=== PATIENT | female | born 1975 | race Caucasian/White ===

== ENCOUNTER 2020-06-01 02:36 | Emergency (ER) | payer OTHER ==
[~2020-06-01] VITALS: Ht 154.9 cm; Wt 55.0 kg
[2020-06-01] MEDS ORDERED: LOSA25TA25 PO (02:56)
[2020-06-01] MEDS ORDERED: SODIUM CHLORIDE FLUSH 10ML SYR IVF ONE (03:00)
[2020-06-01] MEDS ORDERED: PINK LADY ENEMA 490 ML BOTTLE PR ONE (03:00)
[2020-06-01] MEDS ORDERED: SODIUM CHLORIDE 0.9% 1,000ML IVBOLUS ONE (03:00)
[2020-06-01] MEDS ORDERED: ONDANSETRON 2MG/ML, 2ML IVPush ONE (03:00)
[2020-06-01] MEDS ORDERED: ONDANSETRON 2MG/ML, 2ML ONE (03:20)
[2020-06-01] MEDS ORDERED: FENTANYL PF 100 MCG/2ML ONE ×2 (03:20→06:00)
[2020-06-01] MEDS: FENTANYL PF 100 MCG/2ML IVPush PRN ×2 (03:24→06:03)
[2020-06-01 03:28] LABS: MEAN CORPUSCULAR HEMOGLOBIN 29.5 pg (27.0-34.8); MEAN CORPUSCULAR HGB CONC 33.6 g/dL (32.4-35.8); MEAN CORPUSCULAR VOLUME 87.8 fL (80-100); MEAN PLATELET VOLUME 8.6 fL (7.4-10.4); PLATELET COUNT 285 x10^3/uL (130-400); RED BLOOD COUNT 3.36 x10^6/uL (3.82-5.3); RED CELL DISTRIBUTION WIDTH 14.9 % (9.6-15.2)
[2020-06-01 03:35] LABS: ALBUMIN 3.7 g/dL (3.4-5.0); ANION GAP 8 mmol/L (5-15); CALCIUM 8.3 mg/dL (8.5-10.1); CHLORIDE 104 mmol/L (98-107); CREATININE 0.85 mg/dL (0.55-1.02)
--- NOTE | 2020-06-01 03:38 | NUR ---
SUMMARY NOTE: THIS PT WAS BIB [facility] FROM HOME. SHE HAD A DNC YESTERDAY FOR VAGINAL BLEEDING AT AN OUTPATIENT DOCTOR'S OFFICE. SHE PRESENTS TODAY FOR A CHEIF COMPLAINT OF CONSTIPATION AND LOWER QUADRANT ABD PAIN THAT SHE DESCRIBED PRESSURE. PT'S BLADDER ON ARRIVAL WAS VERY DISTENDED. PATEL CATH WAS PLACED BY THIS RN WITH ANGELA BARTON TO WITNESS. APPROX 1300MLS DRAINED AT THIS TIME. PT MEDICATED TO MAR AND STATES RELIEF FROM PAIN AND ANXIETY. THIS RN TO DO ENEMA AFTER IMAGING. AWAITING IMAGING AT THIS TIME.
[2020-06-01 03:41] LABS: MICROSCOPIC NOT IND
[2020-06-01 03:44] LABS: BASOPHILS # (AUTO) 0.04 x10^3/uL (0-0.1); BASOPHILS % (AUTO) 0 % (0-1); EOSINOPHILS # (AUTO) 0.01 x10^3/uL (0-0.4); EOSINOPHILS % (AUTO) 0 % (1-7); LYMPHOCYTES # (AUTO) 1.24 x10^3/uL (1-3.4); LYMPHOCYTES % (AUTO) 7 % (22-44); MD SCAN; MONOCYTES # (AUTO) 0.67 x10^3/uL (0.2-0.8); MONOCYTES % (AUTO) 4 % (2-9); NEUTROPHILS # (AUTO) 16.89 x10^3/uL (1.8-6.8); NEUTROPHILS % (AUTO) 90 % (42-75)
--- NOTE | 2020-06-01 04:03 | NUR ---
PT TO IMAGING.
[2020-06-01] MEDS ORDERED: PROPOFOL 10 MG/ML, 20ML ONE (04:20)
[2020-06-01] MEDS ORDERED: PROPOFOL 10 MG/ML, 20ML IVPush ONE (04:30)
--- NOTE | 2020-06-01 06:04 | NUR ---
PT UP TO BEDSIDE COMMODE AFTER ENEMA. PT SHAKING FROM NERVES. THIS RN REMAINS AT BEDSIDE WITH PT.
[2020-06-01 06:37] VITALS: BP 107/63
--- NOTE | 2020-06-01 07:00 | NUR ---
PT HAD SUCCESSFUL BM. PT ABLE TO DRESS SELF FOR D/C, AWAITING FOR ENGINEERING PSYCHOLOGIST. EXTENSIVE D/C EDUCATION GIVEN, ALL QUESTIONS ANSWERED. REPORT GIVEN TO ANGELA MCGUIRE.
== END 2020-06-01 07:15 | disposition home or self-care (01) ==
LOC: ED 07:13
DX: K56.41 Fecal impaction (principal); R33.9 Retention of urine, unspecified; R10.9 Unspecified abdominal pain; R11.2 Nausea with vomiting, unspecified
CPT/HCPCS: 36415; 51702; 74022; 74176; 80048; 81003; 82040; 85025; 96361; 96374; 96375; 96376; 99285; J2405; J3010; J7030

== ENCOUNTER 2020-06-28 22:54 | Emergency (ER) | payer OTHER ==
[~2020-06-28] VITALS: Ht 157.5 cm; Wt 52.3 kg
[~2020-06-28 22:54] MED LIST: LOSA25TA25 PO
--- NOTE | 2020-06-28 23:00 | NUR ---
PT BIB [facility] FROM HOME FOR C/O LOWER ABD PAIN/CRAMPING AND CONSTIPATION X3 DAYS. PT HAD HYSTERECTOMY ON 06/19/20. PT HAS HX OF CONSTIPATION/IMPACTION REQUIRING MODERATE SEDATION AND DISIMPACTION FOLLOWING DERRICK WORKER WELL SERVICE PROCEDURE IN PAST. PER EMS, PT TOOK ZOFRAN AT HOME. PT WAS HYPERTENSIVE PER EMS 174/120, IN SIGNIFICANT PAIN. MEDICATED WITH 50MCG FENTANYL AND 2MG VERSED EN ROUTE. PT ARRIVES TO ED A&OX4, ANXIOUS, CRYING AT TIMES. ERP AT BS IMMEDIATELY. POC RV'WD WITH PT.
[2020-06-28] MEDS ORDERED: PINK LADY ENEMA 490 ML BOTTLE PR ONE (23:30)
--- NOTE | 2020-06-29 00:12 | NUR ---
ASSISTED PT UP TO BSC. PT HAD SMALL/MED SIZED SOFT BM. PT VERY ANXIOUS, CRYING, "I JUST CAN'T DO THIS, IT HURTS TOO MUCH, I FEEL LIKE I'M GOING TO PASS OUT". ENCOURAGED PT TO TRY TO RELAX AND FINISH HAVING BM ON BSC BUT PT WANTED TO GO BACK TO BED. ASSISTED PT WITH HYGIENE. REPORTED TO MICKEY MILLER.
[2020-06-29] MEDS ORDERED: METHYLNALTREXONE 12 MG/0.6 ML SYR SQ ONE ×2 (00:15→00:30)
[2020-06-29] MEDS ORDERED: KETAMINE 10 MG/ML, 20ML ONE (00:16)
[2020-06-29] MEDS ORDERED: KETAMINE 10 MG/ML, 20ML IV ONE (00:30)
--- NOTE | 2020-06-29 00:52 | NUR ---
PT MEDICATED TO MAR, KETAMINE FOR PAIN. PT UP TO BEDSIDE COMMODE AT THIS TIME.
--- NOTE | 2020-06-29 01:18 | NUR ---
ERP TO BEDSIDE. PT PASSED LARGE AMOUNT OF STOOL. HARD FORMED APPROX 8CM IN ADDITION TO LOOSE STOOL. PT STATES RELIEF AFTER BM.
[2020-06-29 01:48] VITALS: BP 139/71
== END 2020-06-29 02:04 | disposition home or self-care (01) ==
LOC: ED 06-29 01:32
DX: R10.84 Generalized abdominal pain (principal); K59.00 Constipation, unspecified; Z90.710 Acquired absence of both cervix and uterus
CPT/HCPCS: 74018; 96372; 96374; 99284

== ENCOUNTER 2020-07-04 21:24 | Emergency (ER) | payer OTHER ==
[~2020-07-04] VITALS: Ht 157.5 cm; Wt 84.1 kg
[2020-07-04 21:33] VITALS: BP 189/112
[2020-07-04] MEDS ORDERED: SODIUM CHLORIDE FLUSH 10ML SYR IVF ONE (22:00)
[2020-07-04 22:26] LABS: BASOPHILS # (AUTO) 0.03 x10^3/uL (0-0.1); BASOPHILS % (AUTO) 0 % (0-1); EOSINOPHILS # (AUTO) 0.68 x10^3/uL (0-0.4); EOSINOPHILS % (AUTO) 7 % (1-7); LYMPHOCYTES # (AUTO) 1.75 x10^3/uL (1-3.4); LYMPHOCYTES % (AUTO) 17 % (22-44); MD NO; MEAN CORPUSCULAR HEMOGLOBIN 27.3 pg (27.0-34.8); MEAN CORPUSCULAR HGB CONC 32.3 g/dL (32.4-35.8); MEAN CORPUSCULAR VOLUME 84.3 fL (80-100); MEAN PLATELET VOLUME 8.3 fL (7.4-10.4); MONOCYTES # (AUTO) 0.56 x10^3/uL (0.2-0.8); MONOCYTES % (AUTO) 6 % (2-9); NEUTROPHILS # (AUTO) 7.16 x10^3/uL (1.8-6.8); NEUTROPHILS % (AUTO) 70 % (42-75); PLATELET COUNT 339 x10^3/uL (130-400); RED BLOOD COUNT 3.85 x10^6/uL (3.82-5.3); RED CELL DISTRIBUTION WIDTH 15.5 % (9.6-15.2)
[2020-07-04 22:29] LABS: ALBUMIN 3.2 g/dL (3.4-5.0); ANION GAP 5 mmol/L (5-15); CHLORIDE 112 mmol/L (98-107)
--- NOTE | 2020-07-04 23:30 | NUR ---
SEAN JAMES MD WITH PELVIC. SEVERAL LARGE CLOTS PASSED DURING EXAM.
--- NOTE | 2020-07-05 00:27 | NUR ---
ASSISTED MD JACOB WITH PELVIC AND PACKING. PT CONTACTING TO PICK HER UP, PT COMFORTABLE WITH DC AT THIS TIME.
== END 2020-07-05 00:56 | disposition home or self-care (01) ==
LOC: ED 22:34
DX: N99.840 Postprocedural hematoma of a genitourinary system organ or structure following a genitourinary system procedure (principal); N93.9 Abnormal uterine and vaginal bleeding, unspecified; Z90.710 Acquired absence of both cervix and uterus
CPT/HCPCS: 36415; 80048; 82040; 85025; 99284

== ENCOUNTER 2020-07-18 20:48 | Emergency (ER) | payer OTHER ==
[~2020-07-18] VITALS: Ht 157.5 cm; Wt 51.8 kg
--- NOTE | 2020-07-18 21:08 | NUR ---
PT HAD HYSTERECTOMY ON Jun AND ON THE SHE HAD HEMMORAGING FOR WHICH SHE HAD STICHES PLACED AND THE BLEEDING STOPED UNTIL NOON TODAY. PT TALKED WITH OB DOC AND THE DOC STATED TO COME IN IF BLEEDING DOES NOT STOP. PATIENT STATES HAVING CRAMPS AND BLEEDING HAS BEEN CONSTANT ALL DAY. PATIENT HAD A LOT OF BLOOD AT NOON, BUT HAS SLOWED DOWN, PER PATIENT. PATIENT RESTING IN BED, DENIES LIGHTHEADED/DIZZINESS. PATIENT A/0 X 4, SKIN PINK AND DRY. PLACED ON MONITORS, SAFETY MEASURES IN PLACE
[2020-07-18 22:13] LABS: BASOPHILS # (AUTO) 0.06 x10^3/uL (0-0.1); BASOPHILS % (AUTO) 1 % (0-1); EOSINOPHILS # (AUTO) 0.59 x10^3/uL (0-0.4); EOSINOPHILS % (AUTO) 8 % (1-7); LYMPHOCYTES # (AUTO) 1.87 x10^3/uL (1-3.4); LYMPHOCYTES % (AUTO) 26 % (22-44); MD NO; MEAN CORPUSCULAR HEMOGLOBIN 25.9 pg (27.0-34.8); MEAN CORPUSCULAR HGB CONC 31.3 g/dL (32.4-35.8); MEAN CORPUSCULAR VOLUME 82.8 fL (80-100); MEAN PLATELET VOLUME 7.9 fL (7.4-10.4); MONOCYTES # (AUTO) 0.48 x10^3/uL (0.2-0.8); MONOCYTES % (AUTO) 7 % (2-9); NEUTROPHILS # (AUTO) 4.22 x10^3/uL (1.8-6.8); NEUTROPHILS % (AUTO) 58 % (42-75); PLATELET COUNT 452 x10^3/uL (130-400); RED BLOOD COUNT 3.65 x10^6/uL (3.82-5.3); RED CELL DISTRIBUTION WIDTH 15.2 % (9.6-15.2)
--- NOTE | 2020-07-18 22:23 | NUR ---
patient was ambulatory to restroom when erp went in for metal reed tuner exam, erp aware. awaiting exam and lab results. patient has no needs at this time
[2020-07-18 22:24] LABS: ANION GAP 7 mmol/L (5-15); CALCIUM 8.4 mg/dL (8.5-10.1); CHLORIDE 107 mmol/L (98-107); CREATININE 0.78 mg/dL (0.55-1.02)
--- NOTE | 2020-07-19 00:22 | NUR ---
LAB TO BS FOR REPEATE LABS AT THIS TIME. PT. DENIES NEEDS.
[2020-07-19 00:37] LABS: BASOPHILS # (AUTO) 0.03 x10^3/uL (0-0.1); BASOPHILS % (AUTO) 0 % (0-1); EOSINOPHILS # (AUTO) 0.67 x10^3/uL (0-0.4); EOSINOPHILS % (AUTO) 8 % (1-7); LYMPHOCYTES # (AUTO) 2.04 x10^3/uL (1-3.4); LYMPHOCYTES % (AUTO) 25 % (22-44); MD NO; MEAN CORPUSCULAR HGB CONC 31.3 g/dL (32.4-35.8); MEAN CORPUSCULAR VOLUME 83.1 fL (80-100); MEAN PLATELET VOLUME 7.5 fL (7.4-10.4); MONOCYTES # (AUTO) 0.49 x10^3/uL (0.2-0.8); MONOCYTES % (AUTO) 6 % (2-9); NEUTROPHILS # (AUTO) 4.83 x10^3/uL (1.8-6.8); NEUTROPHILS % (AUTO) 60 % (42-75); PLATELET COUNT 444 x10^3/uL (130-400); RED BLOOD COUNT 3.59 x10^6/uL (3.82-5.3)
--- NOTE | 2020-07-19 02:25 | NUR ---
PA at bedside for re-evaluation. ERP to see patient.
[2020-07-19] MEDS ORDERED: DIAZEPAM 5 MG TABLET PO ONE (03:00)
[2020-07-19] MEDS ORDERED: DIAZEPAM 5 MG TABLET ONE (03:04)
--- NOTE | 2020-07-19 03:34 | NUR ---
PT. MEDICATED PER MAR AFTER RETURNING FROM BATHROOM. PT. PASSED A LARGE APPROXIMATELY GOLFBALL SIZED CLOT; ROHIT BERMEO CALLED TO ASSESS. PT. TEARFUL; EMOTIONAL SUPPORTED OFFERED WITH GOOD EFFECT. AT FOR SUPPORT. ROHIT VALENZUELA IN ROOM NOW TO PLACE PACKING.
[2020-07-19 04:25] VITALS: BP 143/91
== END 2020-07-19 04:26 ==
LOC: ED 21:41
DX: N99.820 Postprocedural hemorrhage of a genitourinary system organ or structure following a genitourinary system procedure (principal); R10.31 Right lower quadrant pain; R10.32 Left lower quadrant pain; N93.9 Abnormal uterine and vaginal bleeding, unspecified; Z90.710 Acquired absence of both cervix and uterus
CPT/HCPCS: 36415; 80048; 85025; 99285

== ENCOUNTER 2020-08-03 11:06 | Emergency (ER) | payer OTHER ==
[~2020-08-03] VITALS: Ht 160 cm; Wt 52.5 kg
--- NOTE | 2020-08-03 12:13 | NUR ---
ELECTRICAL TECHNICIAN: PT TO ROOM FROM LOBBY
[2020-08-03 12:17] LABS: BASOPHILS # (AUTO) 0.07 x10^3/uL (0-0.1); BASOPHILS % (AUTO) 1 % (0-1); EOSINOPHILS # (AUTO) 0.42 x10^3/uL (0-0.4); EOSINOPHILS % (AUTO) 6 % (1-7); LYMPHOCYTES # (AUTO) 1.31 x10^3/uL (1-3.4); LYMPHOCYTES % (AUTO) 17 % (22-44); MD NO; MEAN CORPUSCULAR HEMOGLOBIN 25.3 pg (27.0-34.8); MEAN CORPUSCULAR HGB CONC 31.1 g/dL (32.4-35.8); MEAN CORPUSCULAR VOLUME 81.3 fL (80-100); MEAN PLATELET VOLUME 7.7 fL (7.4-10.4); MONOCYTES # (AUTO) 0.44 x10^3/uL (0.2-0.8); MONOCYTES % (AUTO) 6 % (2-9); NEUTROPHILS # (AUTO) 5.34 x10^3/uL (1.8-6.8); NEUTROPHILS % (AUTO) 71 % (42-75); PLATELET COUNT 343 x10^3/uL (130-400); RED BLOOD COUNT 4.03 x10^6/uL (3.82-5.3); RED CELL DISTRIBUTION WIDTH 16.1 % (9.6-15.2)
[2020-08-03 12:29] LABS: ALBUMIN 4.1 g/dL (3.4-5.0); ANION GAP 9 mmol/L (5-15); CHLORIDE 108 mmol/L (98-107)
[2020-08-03 12:35] LABS: ALANINE AMINOTRANSFERASE 15 U/L (12-78); ALKALINE PHOSPHATASE 47 U/L (45-117); BILIRUBIN,TOTAL 0.3 mg/dL (0.2-1.0); CREATININE 0.87 mg/dL (0.55-1.02); TOTAL PROTEIN 7.9 g/dL (6.4-8.2)
[2020-08-03] MEDS ORDERED: ONDANSETRON 2MG/ML, 2ML ONE (12:50)
[2020-08-03] MEDS ORDERED: MORPHINE SULFATE 4 MG/ML, 1ML ONE (12:50)
[2020-08-03] MEDS ORDERED: DIPHENHYDRAMINE 50 MG/ML, 1ML ONE (12:50)
[2020-08-03] MEDS: MORPHINE SULFATE 4 MG/ML, 1ML IVPush PRN ×2 (12:54→15:10)
[2020-08-03] MEDS ORDERED: ONDANSETRON 2MG/ML, 2ML IVPush ONE (13:00)
[2020-08-03] MEDS ORDERED: DIPHENHYDRAMINE 50 MG/ML, 1ML IVPush ONE (13:00)
--- NOTE | 2020-08-03 13:25 | NUR ---
pt resting in bed, pt a/o x4 and conected to the monitor, rn will continue to monitor pt vitals
[2020-08-03] MEDS ORDERED: OMNIPAQUE 350 MG/ML, 75ML BOTTLE ONE (14:00)
[2020-08-03] MEDS ORDERED: ATENOLOL 50 MG TABLET PO ONE (16:00)
[2020-08-03 16:59] VITALS: BP 170/100
== END 2020-08-03 17:03 | disposition home or self-care (01) ==
LOC: ED 14:13
DX: M54.42 Lumbago with sciatica, left side (principal); R10.32 Left lower quadrant pain; M79.605 Pain in left leg; R53.1 Weakness; I10 Essential (primary) hypertension; Z90.710 Acquired absence of both cervix and uterus
CPT/HCPCS: 36415; 74177; 80053; 85025; 93005; 93971; 96374; 96375; 96376; 99285; J1200; J2270; J2405; Q9967